=== PATIENT | female | born 1945 | race American Indian/Alaskan Native ===

== ENCOUNTER 2021-05-11 12:54 | Emergency (ER) | payer MEDICARE ==
[2021-05-11] MEDS ORDERED: CEFEPIME/NS 2 GM/100 ML 2 GM/100 ML BAG IV ONE (14:42)
--- NOTE | 2021-05-11 14:53 | Emergency Department Report ---
ED Eye Problem HPI - General Chief complaint: Eye Problems Stated complaint: EYE EDEMA Time Seen by Provider: 05/11/21 14:30 Source: patient Mode of arrival: Ambulatory Limitations: No Limitations - History of Present Illness Initial comments: Patient presents with right periorbital swelling. She had been seen 1 to 2 weeks ago by her eye doctor. She was told that she had a periorbital cellulitis and was placed on an antibiotic. She does not know the name of that antibiotic. She states that she was doing well until she got a sinus infection several days ago. She had been seen by her doctor at that point. She was placed on doxycycline. She had been seen by her specialist as well. Patient was reseen today after being on doxycycline for several days. Her eye doctor thought things were getting worse and referred her here for further evaluation. There was concern for an orbital cellulitis. Patient does not have any fever although she reported low-grade fevers to her converter skimmer. She states that she has been taking the antibiotic. It does not seem to be helping. She denies having any significant pain. She has not noticed any cough or congestion currently. She states that she was congested previously but not now. There is no trauma. - Related Data Home Medications Medication Instructions Recorded Confirmed Last Taken Atorvastatin Calcium [Lipitor] 40 mg PO QHS 07/31/14 08/07/14 08/02/14 Brimonidine Tartrate [Alphagan P 1 drop OU Q8HR 07/31/14 08/07/14 08/05/14 0.1%] Cetirizine HCl [Cetirizine 5mg tab] 10 mg PO DAILY 07/31/14 07/31/14 Unknown Fluticasone [Flonase] 1 spray NS QDAY 07/31/14 08/07/14 07/31/14 Latanoprost [Xalatan 0.005% eye 1 drop OU QPM 07/31/14 08/07/14 08/05/14 drops] Levobunolol HCl [Betagan 0.5%] 1 drop OP QDAY 07/31/14 08/07/14 08/05/14 Losartan/Hydrochlorothiazide 1 each PO DAILY 07/31/14 08/07/14 08/06/14 [Hyzaar 100-25 TAB] Naproxen [Naprosyn TAB] 800 mg PO PRN PRN 07/31/14 08/07/14 07/24/14 amLODIPine 10 mg PO DAILY 07/31/14 08/07/14 08/02/14 atenoloL [Atenolol] 100 mg PO DAILY 07/31/14 07/31/14 Unknown Previous Rx's Medication Instructions Recorded Last Taken Type cephALEXin [Keflex] 500 mg PO Q8HR #20 cap 05/11/21 Unknown Rx Allergies Allergy/AdvReac Type Severity Reaction Status Date / Time Latex, Natural Rubber AdvReac Rash Verified 07/31/14 10:43 Penicillins AdvReac Rash Verified 07/31/14 10:43 ED Review of Systems ROS: Stated complaint: EYE EDEMA Other details as noted in HPI Comment: All other systems reviewed and negative Constitutional: fever (Subjective) Eyes: as per HPI ENT: denies: throat pain Respiratory: denies: cough Cardiovascular: denies: chest pain Endocrine: denies: unexplained weight loss Gastrointestinal: denies: abdominal pain Genitourinary: denies: dysuria Musculoskeletal: denies: back pain Skin: denies: rash Neurological: denies: headache Hematological/Lymphatic: denies: easy bruising ED Past Medical Hx - Past Medical History Previous Medical History?: Yes Hx Hypertension: Yes (10+ YEARS) Hx Arthritis: Yes () - Surgical History Past Surgical History?: Yes Hx Cholecystectomy: Yes (2001) - Family History Family history: hypertension - Social History Smoking Status: Former Smoker - Medications Home Medications: Home Medications Medication Instructions Recorded Confirmed Last Taken Type Atorvastatin Calcium [Lipitor] 40 mg PO QHS 07/31/14 08/07/14 08/02/14 History Brimonidine Tartrate [Alphagan P 1 drop OU Q8HR 07/31/14 08/07/14 08/05/14 History 0.1%] Cetirizine HCl [Cetirizine 5mg tab] 10 mg PO DAILY 07/31/14 07/31/14 Unknown History Fluticasone [Flonase] 1 spray NS QDAY 07/31/14 08/07/14 07/31/14 History Latanoprost [Xalatan 0.005% eye 1 drop OU QPM 07/31/14 08/07/14 08/05/14 History drops] Levobunolol HCl [Betagan 0.5%] 1 drop OP QDAY 07/31/14 08/07/14 08/05/14 History Losartan/Hydrochlorothiazide 1 each PO DAILY 07/31/14 08/07/14 08/06/14 History [Hyzaar 100-25 TAB] Naproxen [Naprosyn TAB] 800 mg PO PRN PRN 07/31/14 08/07/14 07/24/14 History amLODIPine 10 mg PO DAILY 07/31/14 08/07/14 08/02/14 History atenoloL [Atenolol] 100 mg PO DAILY 07/31/14 07/31/14 Unknown History cephALEXin [Keflex] 500 mg PO Q8HR #20 cap 05/11/21 Unknown Rx ED Physical Exam - General Limitations: No Limitations General appearance: alert, in no apparent distress, other (Nontoxic) - Head Head exam: Present: atraumatic, other (Right periorbital swelling) - Eye Eye exam: Present: PERRL, EOMI, conjunctival injection (Right), periorbital swelling (Right), other (No direct or consensual photophobia). Absent: scleral icterus - ENT ENT exam: Present: normal exam, normal orophraynx, mucous membranes moist - Neck Neck exam: Present: normal inspection. Absent: tenderness, meningismus - Respiratory Respiratory exam: Present: normal lung sounds bilaterally. Absent: respiratory distress - Cardiovascular Cardiovascular Exam: Present: regular rate, normal rhythm - GI/Abdominal GI/Abdominal exam: Present: other (Obese) - Extremities Exam Extremities exam: Present: normal capillary refill - Back Exam Back exam: Absent: CVA tenderness (R), CVA tenderness (L) - Neurological Exam Neurological exam: Present: alert, oriented X3, CN II-XII intact. Absent: motor sensory deficit - Psychiatric Psychiatric exam: Present: normal affect, normal mood - Skin Skin exam: Present: warm, dry ED Course Vital Signs 05/11/21 14:13 Temperature 98.7 F Pulse Rate 92 H Respiratory 22 Rate Blood Pressure 194/122 O2 Sat by Pulse 98 Oximetry - Reevaluation(s) Reevaluation #1: 05/11/21 14:52 Referral from the converter skimmer was reviewed. IV, labs, and CT were ordered. Reevaluation #2: 05/11/21 17:27 CT was noted. Patient was discharged. ED Medical Decision Making - Lab Data Result diagrams: 05/11/21 15:09 05/11/21 15:09 - Medical Decision Making Patient presented as a referral for evaluation of orbital cellulitis. CT failed to demonstrate orbital cellulitis or orbital changes. She does have preorbital cellulitis. She was treated aggressively with antibiotics and will be placed on antibiotics at home. She can follow-up with a primary care physician. There is no evidence of abscess. She does not have evidence of proptosis. There is no rash that would suggest shingles. Critical Care Time: No Critical care attestation.: If time is entered above; I have spent that time in minutes in the direct care of this critically ill patient, excluding procedure time. ED Disposition Clinical Impression: Preseptal cellulitis of right eye Disposition: 01 HOME / SELF CARE / HOMELESS Is pt being admited?: No Does the pt Need Aspirin: No Condition: Stable Instructions: Cellulitis, Adult Additional Instructions: Apply ice at home. Drink plenty of water. Take all of the antibiotics. Return for problems. Follow-up with your regular doctor. Prescriptions: cephALEXin [Keflex] 500 mg PO Q8HR #20 cap
[2021-05-11 16:00] LABS: BUN/Creatinine Ratio 13; Blood Urea Nitrogen 10 mg/dL (7-17); Hemolysis Index 6
[2021-05-11 16:02] LABS: Hematocrit 50.2 % (30.3-42.9); Hemoglobin 16.3 gm/dl (10.1-14.3); Mean Corpuscular HGB Conc 33 % (30-34); Mean Corpuscular Volume 92 fl (79-97); Platelet Count 228 K/mm3 (140-440); Red Blood Count 5.48 M/mm3 (3.65-5.03); Red Cell Distribution Width 14.9 % (13.2-15.2)
--- NOTE | 2021-05-11 17:18 | Cat Scan Report ---
CT ORBITS HISTORY: Orbital cellulitis. COMPARISON: None. TECHNIQUE: Axial images of the orbits were obtained. Coronal reformats were generated. CONTRAST: 100 ml of Omnipaque 300 FINDINGS: Facial bones: The visualized facial bones, including the orbital estrada and zygomatic arches appear in tact. Paranasal sinuses: The paranasal sinuses are pneumatized without air-fluid levels. The nasal septum i s essentially midline. Orbits: There is notable preseptal soft tissue edema involving right orbit indicative of cellulitis g iven the patient's history. There is also note of enlargement of the right lacrimal gland which likel y reflects associated inflammatory changes at. Otherwise I, there is no clear evidence of significant post septal inflammatory changes at. The optic globes appear to demonstrate appropriate size and configuration. The extraocular muscles an d optic nerve sheaths also appear symmetric in size. No definitive focal intraorbital enhancing lesio ns are appreciated. Additional findings: None. IMPRESSION: 1. There are extensive inflammatory changes involving preseptal soft tissues of the right orbit whi ch at. To involve the right lacrimal gland as detailed above. Otherwise I, there is no clear CT evide nce of significant post septal inflammatory changes or focal fluid collections to indicate abscess. 2. The paranasal sinuses are clear without significant inflammatory changes. Signer Name: Lencho Ireland MD Signed: 05/11/2021 5:13 PM Workstation Name: [id number]
[2021-05-11 18:25] VITALS: BP 155/96
== END 2021-05-11 18:27 | disposition home or self-care (01) ==
LOC: ED 12:54
DX: L03.213 Periorbital cellulitis (principal); I10 Essential (primary) hypertension; M19.90 Unspecified osteoarthritis, unspecified site; Z98.890 Other specified postprocedural states; Z87.891 Personal history of nicotine dependence; Z88.0 Allergy status to penicillin; Z91.040 Latex allergy status
CPT/HCPCS: 36415; 70481; 80048; 85027; 96365; 99284; J0692; Q9967